=== PATIENT | male | born 1950 | race Caucasian/White ===

== ENCOUNTER 2021-07-12 08:47 | Emergency (ER) | payer OTHER ==
[~2021-07-12] VITALS: Ht 175.3 cm; Wt 83.5 kg
[2021-07-12] MEDS ORDERED: TOPROL XL50 M1 (08:58)
[2021-07-12] MEDS ORDERED: TOPROL XL25 M1 PO (08:58)
[2021-07-12] MEDS ORDERED: CANDESARTAN CILE8 MG (08:59)
== END 2021-07-12 15:47 | disposition home or self-care (01) ==
LOC: ER 08:47
DX: N20.1 Calculus of ureter (principal); N13.39 Other hydronephrosis; K59.09 Other constipation; I10 Essential (primary) hypertension; R10.31 Right lower quadrant pain; Z11.52 Encounter for screening for COVID-19

== ENCOUNTER 2023-05-24 07:29 | Outpatient (CLI) | payer OTHER ==
[~2023-05-24 07:29] MED LIST: CANDESARTAN CILE8 MG; TOPROL XL25 M1 PO; TOPROL XL50 M1
== END 2023-05-24 07:33 | disposition home or self-care (01) ==
LOC: SONOGRAMA 07:29
DX: R31.9 Hematuria, unspecified (principal); N40.1 Benign prostatic hyperplasia with lower urinary tract symptoms